=== PATIENT | female | born 1995 | race Caucasian/White ===

== ENCOUNTER 2019-08-14 16:47 | Emergency (ER) | payer BC, MEDICAID, OTHER ==
[2019-08-14 16:57] VITALS: RESP 18; TEMP 100.4
--- NOTE | 2019-08-14 17:41 | ED ---
URI HPI - General Chief Complaint: Upper Respiratory Infection Stated Complaint: pneumonia Time Seen by Provider: 08/14/19 17:04 Source: patient, RN notes reviewed Mode of arrival: ambulatory Limitations: no limitations - History of Present Illness Initial Comments: 24-year-old female without any significant past medical history presents to the emergency department for a chief complaint of cough. Patient states that for the past 4 days she has had a nonproductive cough. She denies any shortness of breath or chest pain associated with this. States she had a fever of 102.7 at urgent care and was given Tylenol 1-2 hours ago and since then has felt much better. States that she had a chest x-ray at urgent care and was told she had pneumonia. Patient was not sent with the x-ray disc. Denies any history of smoking or asthma. Patient has no other complaints at this time including chest pain, abdominal pain, nausea or vomiting, headache, or visual changes. - Related Data Previous Rx's Medication Instructions Recorded Acetaminophen-Codeine 300-30mg 1 each PO Q4H PRN #20 tablet 12/29/14 [Tylenol w/codeine #3] Naproxen [Naprosyn] 500 mg PO Q12HR #24 tab 12/29/14 Azithromycin [Zithromax Z-pack] 250 mg PO DIRECTED #6 tab 08/14/19 Pmos-Ljaz-Egp 6.25-5-10Mg/5Ml 5 ml PO Q6H 3 Days #60 ml 08/14/19 [Phenergan VC with Codeine] Allergies Allergy/AdvReac Type Severity Reaction Status Date / Time No Known Allergies Allergy Verified 08/14/19 16:54 Review of Systems ROS Statement: Those systems with pertinent positive or pertinent negative responses have been documented in the HPI. ROS Other: All systems not noted in ROS Statement are negative. Past Medical History Past Medical History: No Reported History History of Any Multi-Drug Resistant Organisms: None Reported Past Surgical History: No Surgical Hx Reported Past Psychological History: No Psychological Hx Reported Smoking Status: Former smoker Past Alcohol Use History: None Reported Past Drug Use History: None Reported General Exam Limitations: no limitations General appearance: alert, in no apparent distress Head exam: Present: atraumatic, normocephalic, normal inspection Eye exam: Present: normal appearance, PERRL, EOMI. Absent: scleral icterus, conjunctival injection, periorbital swelling ENT exam: Present: normal exam, mucous membranes moist Neck exam: Present: normal inspection. Absent: tenderness, meningismus, lymphadenopathy Respiratory exam: Present: normal lung sounds bilaterally. Absent: respiratory distress, wheezes, rales, rhonchi, stridor Cardiovascular Exam: Present: regular rate, normal rhythm, normal heart sounds. Absent: systolic murmur, diastolic murmur, rubs, gallop, clicks GI/Abdominal exam: Present: soft, normal bowel sounds. Absent: distended, tenderness, guarding, rebound, rigid Neurological exam: Present: alert Psychiatric exam: Present: normal affect, normal mood Course Vital Signs 08/14/19 08/14/19 16:54 18:37 Temperature 100.4 F H Pulse Rate 120 H 97 Respiratory 18 18 Rate Blood Pressure 154/103 135/74 O2 Sat by Pulse 95 93 L Oximetry Medical Decision Making - Medical Decision Making 24 year old female presents to the emergency department for a chief complaint of cough. States she has had a cough for about 4 days. Denies any chest pain or shortness of breath whatsoever. Patient went to urgent care was diagnosed with pneumonia but sent to the emergency department. On presentation lungs are clear to auscultation bilaterally, possible small crackles in the low left lung base. Patient initially tachycardic with a pulse rate of 120 likely secondary to fever. This was repeated throughout her stay and is now in the 90s. Blood pressure has improved as well. Patient is 95% on room air when I am in the room. Influenza negative. Chest x-ray shows findings suspicious for a left lower lobe pneumonia. This is clinically consistent with patient's symptoms. Patient was given an IM Rocephin here in the emergency department and a pill of azithromycin. He will be discharged home with a Z-Clem. Patient will follow up with primary care. Discussed return parameters including shortness of breath, worsening symptoms, or any other concerns. - Lab Data Lab Results 08/14/19 08/14/19 08/14/19 Range/Units 17:30 17:30 17:36 Urine Color Yellow Urine Appearance Clear (Clear) Urine pH 6.0 (5.0-8.0) Ur Specific [place] 1.010 (1.001-1.035) Urine Protein Trace H (Negative) Urine Glucose (UA) Negative (Negative) Urine Ketones Trace H (Negative) Urine Blood Negative (Negative) Urine Nitrite Negative (Negative) Urine Bilirubin Negative (Negative) Urine Urobilinogen <2.0 (<2.0) mg/dL Ur Leukocyte Esterase Negative (Negative) Urine HCG, Qual Not Detected (Not Detectd) Influenza Type A RNA Not Detected (Not Detectd) Influenza Type B (PCR) Not Detected (Not Detectd) Disposition Clinical Impression: Pneumonia Disposition: HOME SELF-CARE Condition: Good Instructions (If sedation given, give patient instructions): Upper Respiratory Infection (ED) Additional Instructions: Please take antibiotic as directed. Please follow-up with primary care in 1-2 days. Return to the emergency department if you have any worsening symptoms including chest pain or shortness of breath. Prescriptions: Chqe-Xhis-Ctn 6.25-5-10Mg/5Ml [Phenergan VC with Codeine] 5 ml PO Q6H 3 Days #60 ml Azithromycin [Zithromax Z-pack] 250 mg PO DIRECTED #6 tab Is patient prescribed a controlled substance at d/c from ED?: No Referrals: Ana Allen MD [STAFF PHYSICIAN] - 1-2 days Time of Disposition: 18:47
[2019-08-14 17:45] LABS: Appearance,Urine Clear (Clear); Bilirubin,Urine Negative (Negative); Blood,Urine Negative (Negative); Color,Urine Yellow; Glucose,Urine (UA) Negative (Negative); Ketones,Urine Trace (Negative); Leukocyte Esterase,Urine Negative (Negative); Nitrite,Urine Negative (Negative); Protein,Urine Trace (Negative); Urobilinogen,Urine <2.0 mg/dL (<2.0)
--- NOTE | 2019-08-14 18:06 | XR ---
EXAMINATION TYPE: XR chest 2V DATE OF EXAM: 08/14/2019 COMPARISON: 12/28/2014 HISTORY: 24-year-old female cough, fever, pneumonia TECHNIQUE: PA and lateral views FINDINGS: Heart normal size. Aorta and pulmonary vasculature within normal limits. Patchy and confluent airspac e opacity left mid and lower lung. No pleural effusion. IMPRESSION: Findings suspicious for left lower lobe pneumonia.
[2019-08-14] MEDS ORDERED: IBUPROFEN 600 MG TAB PO STA (18:12)
[2019-08-14 18:38] VITALS: BP 135/74; PULSE 97
[2019-08-14] MEDS ORDERED: AZITHROMYCIN 500 MG TAB PO STA (18:39)
[2019-08-14] MEDS ORDERED: cefTRIAXone 1,000 MG VIAL (IM USE) IM STA (18:39)
== END 2019-08-14 19:16 | disposition home or self-care (01) ==
LOC: EC 16:47
DX: J18.9 Pneumonia, unspecified organism (principal); Z87.891 Personal history of nicotine dependence
CPT/HCPCS: 81003; 81025; 87502; 71046; 96372; 99283; J0696

== ENCOUNTER → 2020-12-07 | Outpatient (CLI) | payer MEDICAID ==
--- NOTE | 2020-12-07 10:05 | XR ---
EXAMINATION TYPE: XR ankle complete 3 views RT, XR foot complete 3 views RT DATE OF EXAM: 12/07/2020 COMPARISON: NONE HISTORY: 25-year-old female tripped on dog, pain. FINDINGS: Ankle: There is a tiny curvilinear density at the inferior tip of the medial malleolus. Mild circumferential soft tissue swelling at the ankle. Corticated bone fragment measuring 7 mm below the lateral malleol us suggesting sequela of remote injury. Talar dome is intact. Ankle mortise is congruent. Smooth deli neation to the Achilles tendon. Tiny plantar heel spur. Subtalar joint is aligned. Foot: Mild bunion formation. No acute fracture, subluxation, dislocation seen. IMP SCOTTY: 1. Ankle: Tiny curvilinear density at the inferior tip of the medial malleolus. Age indeterminate tin y, nondisplaced avulsion fracture. Acute injury here is difficult to exclude. Clinically correlate. S equela of remote injury at the lateral malleolus. 2. Foot: Mild bunion. No acute osseous anomaly seen. If symptoms persist or worsen, consider follow-u p radiograph in 10-14 days.
== END | disposition home or self-care (01) ==
LOC: RADXRMAIN 09:32
PROVIDERS: ATTEND Nurse Practitioner Family
DX: S82.891A Other fracture of right lower leg, initial encounter for closed fracture (principal); M21.611 Bunion of right foot; S99.811A Other specified injuries of right ankle, initial encounter; S82.61XS Displaced fracture of lateral malleolus of right fibula, sequela

== ENCOUNTER → 2021-01-30 | Outpatient (CLI) | payer MEDICAID ==
[2021-01-31 02:01] LABS: HIV 2 AB Non-Reactive (Non-Reactive); HIV AB P24 Non-Reactive (Non-Reactive); HIV P24 AG Non-Reactive (Non-Reactive)
[2021-01-31 03:49] LABS: HGB 12.9 g/dL (12.0-15.0); MCH 30.9 pg (27.0-32.0); MCHC 32.3 g/dL (32.0-37.0); MCV 95.7 fL (80.0-97.0); Platelet Count 274 X 10*3/uL (140-440); RBC 4.18 X 10*6/uL (4.10-5.20); RDW 12.7 % (11.5-14.5); WBC 8.82 X 10*3/uL (4.50-10.00)
[2021-01-31 03:53] LABS: Uric Acid 3.9 mg/dL (2.9-7.7)
[2021-01-31 04:42] LABS: Hepatitis B Surface Antigen Non-Reactive (Non-Reactive)
[2021-01-31 07:50] LABS: Hemoglobin A1C 4.7 % (4.0-6.0)
== END ==
LOC: LABWHC1 14:40
PROVIDERS: ATTEND Obstetrics & Gynecology Obstetrics
DX: Z34.01 Encounter for supervision of normal first pregnancy, first trimester (principal); Z3A.00 Weeks of gestation of pregnancy not specified
CPT/HCPCS: 36415; 82950; 83036; 84450; 84460; 84550; 85027; 86762; 86780; 86850; 86900; 86901; 87086; 87340; 87390

== ENCOUNTER → 2021-05-16 | Outpatient (CLI) | payer MEDICAID ==
[2021-05-16 22:35] LABS: HGB 10.7 g/dL (12.0-15.0); MCHC 32.4 g/dL (32.0-37.0); MCV 95.7 fL (80.0-97.0); Mean Platelet Volume 11.6 fL (9.5-12.2); Platelet Count 257 X 10*3/uL (140-440); RBC 3.45 X 10*6/uL (4.10-5.20); RDW 14.4 % (11.5-14.5); WBC 10.51 X 10*3/uL (4.50-10.00)
== END | disposition home or self-care (01) ==
LOC: LABWHC1 14:39
PROVIDERS: ATTEND Obstetrics & Gynecology Obstetrics
DX: Z36.9 Encounter for antenatal screening, unspecified (principal)
CPT/HCPCS: 36415; 82950; 85027

== ENCOUNTER 2021-07-27 07:49 | Outpatient (CLI) | payer MEDICAID ==
[2021-07-27 09:52] LABS: Basophils % (A) 0 %; Eosinophils # (A) 0.1 k/uL (0-0.7); Eosinophils % (A) 1 %; HCT 34.9 % (34.0-46.0); HGB 11.4 gm/dL (11.4-16.0); Lymphocytes # (A) 1.7 k/uL (1.0-4.8); Lymphocytes % (A) 14 %; MCH 30.3 pg (25.0-35.0); MCHC 32.6 g/dL (31.0-37.0); MCV 92.8 fL (80.0-100.0); Mean Platelet Volume 9.1; Monocytes # (A) 0.5 k/uL (0-1.0); Monocytes % (A) 4 %; Neutrophils # (A) 9.3 k/uL (1.3-7.7); Neutrophils % (A) 79 %; Platelet Count 264 k/uL (150-450); RBC 3.76 m/uL (3.80-5.40); RDW 13.6 % (11.5-15.5); WBC 11.8 k/uL (3.8-10.6)
[2021-07-27 09:59] LABS: Appearance,Urine Clear (Clear); Bilirubin,Urine Negative (Negative); Blood,Urine Negative (Negative); Color,Urine Light Yellow; Glucose,Urine (UA) Negative (Negative); Ketones,Urine Negative (Negative); Leukocyte Esterase,Urine Negative (Negative); Nitrite,Urine Negative (Negative); PH, Urine 7.5 (5.0-8.0); Protein,Urine Negative (Negative); Specific Gravity,Urine 1.008 (1.001-1.035); Urobilinogen,Urine <2.0 mg/dL (<2.0)
[2021-07-27 10:01] VITALS: BP 139/84; PULSE 108; RESP 18; TEMP 97.7
[2021-07-27 10:01] LABS: ALT 10 U/L (4-34); AST 18 U/L (14-36); African American GFR (CKD) >90 (>60 ml/min/1.73 sqM); Blood Urea Nitrogen 5 mg/dL (7-17); LDH 333 U/L (313-618); Non-African American GFR(CKD) >90 (>60 ml/min/1.73 sqM); Uric Acid 3.5 mg/dL (3.7-7.4)
[2021-07-27 10:07] LABS: INR 0.8 (<1.2); Partial Thromboplastin Time 22.9 sec (22.0-30.0); Prothrombin Time 9.3 sec (9.0-12.0)
[2021-07-27 10:09] LABS: Creatinine,Urine Random 61.7 mg/dL; Protein/Creatinine Ratio,Urine 0.227
--- NOTE | 2021-09-19 16:17 | P.MSEPDOC ---
Presenting Problems - Arrival Data Date of Arrival on Unit: 07/27/21 Time of Arrival on Unit: 07:49 Mode of Transport: Ambulatory - Complaint OB-Reason for Admission/Chief Complaint: Possible Onset of Labor Comment: Pt here with c/o cxns this AM, rating them 6/10 for pain. Medical History - Information : 1 Para: 0 Term: 0 : 0 Abortions: Spontaneous or Elective: 0 Number of Living Children: 0 - Gestational Age Gestational Age by CRISTIAN (wks/days): 37 Weeks and 1 Days - History Complications: Other Comment: COVID in January Review of Systems - Review of Systems Constitutional: No problems Breast: No problems ENT: No problems Cardiovascular: No problems Respiratory: No problems Gastrointestinal: No problems Genitourinary: No problems Musculoskeletal: No problems Neurological: No problems Skin: No problems Vital Signs - Temperature Temperature: 97.7 F Temperature Source: Temporal Artery Scan - Pulse Right Pulse Rate: 108 Pulse Assessment Method: Automatic Cuff - Respirations Respiratory Rate: 18 Oxygen Delivery Method: Room Air O2 Sat by Pulse Oximetry: 98 - Blood Pressure Right Arm Blood Pressure: 139/84 Blood Pressure Mean: 102 Blood Pressure Source: Automatic Cuff Medical Screen Scoring - Cervical Exam Dilation (cm): 1 Membranes: Intact - Uterine Contractions Frequency From (mins): 3 Frequency To (mins): 4 Duration From (seconds): 60 Duration To (seconds): 120 Intensity: Mild Resting: Soft to palpation - Assessment - Baby A Baseline FHR: 135 Heart Rate - NICHD Category: Category I (Normal) NST: Reactive Physician Notification - Physician Notified Physician Notified Date: 07/27/21 Physician Notified Time: 10:13 Physician: Carey Ayers New Order Received: Yes - Notification Comment Comment: RN spoke with Dr. Ayers regarding pt's c/o cxns. Cxns approximately 3- 4mins on. arrival, more spaced out now. Cervix is fingertip/thick/high. BPs are elevated, RN to order preeclamptic labs and urine. Lab values WNL, pt may DC with follow up next week. Maternal Triage Index - Maternal Triage Index Presenting for scheduled procedure w/no complaint: No - Stat/Priority 1 Stat Priority 1: No - Urgent/Priority 2 Urgent Priority 2: Yes Provider Notified: Carey Ayers Provider Notified Time: 09:13 Criteria Met for Priority 2: SBP >140 & DBP >90 Disposition - Disposition OB Disposition: Discharge to home Discharge Date: 07/27/21 Discharge Time: 10:18 I agree with the RN Medical Screening Exam: Yes Case reviewed; plan agreed upon as documented in EMR&OBIX.: Yes Comments: Patient was not seen or examined by myself Diagnosis: FALSE LABOR AT OR AFTER 37 COMPLETED WEEKS OF GESTATION
== END 2021-07-27 10:18 | disposition home or self-care (01) ==
LOC: FBPOP 07:49
PROVIDERS: ATTEND Obstetrics & Gynecology Obstetrics
DX: O47.1 False labor at or after 37 completed weeks of gestation (principal); Z3A.37 37 weeks gestation of pregnancy; Z87.891 Personal history of nicotine dependence
CPT/HCPCS: 59025; 81003; 82565; 82570; 83615; 84156; 84450; 84460; 84520; 84550; 85025; 85384; 85610; 85730; 99215

== ENCOUNTER 2021-08-14 14:15 | Outpatient (CLI) | payer MEDICAID ==
[2021-08-14 14:44] LABS: Appearance,Urine Clear (Clear); Bilirubin,Urine Negative (Negative); Blood,Urine Negative (Negative); Color,Urine Yellow; Glucose,Urine (UA) Negative (Negative); Ketones,Urine Negative (Negative); Leukocyte Esterase,Urine Negative (Negative); Nitrite,Urine Negative (Negative); PH, Urine 6.5 (5.0-8.0); Protein,Urine Negative (Negative); Specific Gravity,Urine 1.017 (1.001-1.035); Urobilinogen,Urine <2.0 mg/dL (<2.0)
[2021-08-14 15:31] LABS: Basophils % (A) 0 %; Eosinophils # (A) 0.2 k/uL (0-0.7); Eosinophils % (A) 2 %; HCT 33.6 % (34.0-46.0); HGB 11.7 gm/dL (11.4-16.0); Lymphocytes # (A) 1.4 k/uL (1.0-4.8); Lymphocytes % (A) 15 %; MCH 31.4 pg (25.0-35.0); MCHC 34.9 g/dL (31.0-37.0); Mean Platelet Volume 8.5; Monocytes # (A) 0.4 k/uL (0-1.0); Monocytes % (A) 4 %; Neutrophils # (A) 7.8 k/uL (1.3-7.7); Neutrophils % (A) 79 %; Platelet Count 311 k/uL (150-450); RBC 3.73 m/uL (3.80-5.40); RDW 13.4 % (11.5-15.5); WBC 9.9 k/uL (3.8-10.6)
[2021-08-14 15:38] LABS: ALT 10 U/L (4-34); AST 29 U/L (14-36); African American GFR (CKD) >90 (>60 ml/min/1.73 sqM); Blood Urea Nitrogen 6 mg/dL (7-17); LDH 578 U/L (313-618); Non-African American GFR(CKD) >90 (>60 ml/min/1.73 sqM); Uric Acid 3.9 mg/dL (3.7-7.4)
[2021-08-14 16:23] VITALS: BP 136/78; PULSE 100; RESP 18; TEMP 98.9
[2021-08-15 12:17] LABS: Creatinine,Urine Random 118.3 mg/dL; Protein/Creatinine Ratio,Urine 0.042
--- NOTE | 2021-10-14 09:43 | P.MSEPDOC ---
Presenting Problems - Arrival Data Date of Arrival on Unit: 08/14/21 Time of Arrival on Unit: 14:15 Mode of Transport: Ambulatory - Complaint OB-Reason for Admission/Chief Complaint: PIH Comment: Sent over from office for PI work up. Medical History - Information : 1 Para: 0 Term: 0 : 0 Abortions: Spontaneous or Elective: 0 Number of Living Children: 0 - Gestational Age Gestational Age by CRISTIAN (wks/days): 39 Weeks and 5 Days Review of Systems - Review of Systems Constitutional: No problems Breast: No problems ENT: No problems Cardiovascular: No problems Respiratory: No problems Gastrointestinal: No problems Genitourinary: No problems Musculoskeletal: No problems Neurological: No problems Skin: No problems Vital Signs - Temperature Temperature: 98.9 F Temperature Source: Oral - Pulse Right Pulse Rate: 100 Pulse Assessment Method: Automatic Cuff - Respirations Respiratory Rate: 18 Oxygen Delivery Method: Room Air - Blood Pressure Right Arm Blood Pressure: 136/78 Blood Pressure Mean: 97 Blood Pressure Source: Automatic Cuff Medical Screen Scoring - Cervical Exam Membranes: Intact - Assessment - Baby A Baseline FHR: 145 Heart Rate - NICHD Category: Category I (Normal) NST: Reactive Physician Notification - Physician Notified Physician Notified Date: 08/14/21 Physician Notified Time: 15:49 Physician: Carey Ayers New Order Received: Yes (Discharge home with place for cervidil 08/15/21@1600.) Maternal Triage Index - Maternal Triage Index Presenting for scheduled procedure w/no complaint: No - Stat/Priority 1 Stat Priority 1: No - Urgent/Priority 2 Urgent Priority 2: No - Prompt/Priority 3 Prompt Priority 3: No - Non-Urgent/Priority 4 Non-Urgent Priority 4: No - Scheduled/Requesting Priority 5 Scheduled/Requesting Priority 5: Yes Criteria Met for Priority 5: Sent over from office for PI work up. Disposition - Disposition OB Disposition: Discharge to home Discharge Date: 08/14/21 Discharge Time: 15:49 I agree with the RN Medical Screening Exam: Yes Physician's MSE Comment: Patient was not seen or examined by myself Case reviewed; plan agreed upon as documented in EMR&OBIX.: Yes Diagnosis: GESTATIONAL HTN W/O SIGNIFICANT PROTEINURIA, THIRD TRIMESTER
== END 2021-08-14 15:55 | disposition home or self-care (01) ==
LOC: FBPOP 14:15
PROVIDERS: ATTEND Obstetrics & Gynecology Obstetrics
DX: O13.3 Gestational [pregnancy-induced] hypertension without significant proteinuria, third trimester (principal); Z3A.39 39 weeks gestation of pregnancy; Z87.891 Personal history of nicotine dependence
CPT/HCPCS: 59025; 81003; 82565; 82570; 83615; 84156; 84450; 84460; 84520; 84550; 85025; 99215

== ENCOUNTER 2021-08-15 16:00 | Inpatient (IN) | payer MEDICAID ==
[~2021-08-15 16:00] MED LIST: CARBOPROST TROMETHAMINE 250 MCG/ML 1 ML AMP IM PRN; DINOPROSTONE 10 MG INSERT.ER VAGINAL ONE; LIDOCAINE 0.5% (PF) 5 MG/ML (50 ML SDV) SQ PRN; METHYLERGONOVINE 0.2 MG/ML 1 ML AMP IM PRN; OXYTOCIN 10 UNIT/ML 1 ML VIAL IM PRN; OXYTOCIN 30 UNITS/500 ML NS 30 UNIT in SALINE 1 500ML.BAG IV SCH; TERBUTALINE 1 MG/ML VIAL SQ PRN
--- NOTE | 2021-08-15 16:35 | P.HPOB ---
History of Present Illness H&P Date: 08/15/21 Chief Complaint: IUP @ 39 6/7 weeks This is a 26-year-old 1 para 0 at 39-6/7 weeks that presents for Cervidil induction of labor. Patient has been receiving routine care which has been uncomplicated. Patient does note good movement, occasional contractions denies vaginal bleeding or loss of fluid. On bloodwork this patient is a blood type of A+, B surface antigen negative, HIV negative, RPR is nonreactive, group beta strep cultures are n egative. Review of Systems Constitutional: Denies chills, Denies fatigue, Denies fever Ears, nose, mouth and throat: Denies headache Cardiovascular: Reports leg edema Respiratory: Denies dyspnea Gastrointestinal: Denies constipation, Denies diarrhea, Denies nausea, Denies vomiting Genitourinary: Reports Past Medical History Past Medical History: No Reported History History of Any Multi-Drug Resistant Organisms: None Reported Past Surgical History: No Surgical Hx Reported Smoking Status: Never smoker Medications and Allergies Home Medications Medication Instructions Recorded Confirmed Type Aspirin [[place] Aspirin EC] 1 tab PO DAILY 07/27/21 08/14/21 History Omeprazole 1 tab PO DAILY 07/27/21 08/14/21 History Pnv 11/Iron Fum/Folic Acid/Om3 1 each PO DAILY 08/14/21 08/14/21 History [Virt-Vincent Dha Softgel] Allergies Allergy/AdvReac Type Severity Reaction Status Date / Time No Known Allergies Allergy Verified 08/14/21 14:27 Exam Osteopathic Statement: *. No significant issues noted on an osteopathic structural exam other than those noted in the History and Physical/Consult. Targeted physical exam is performed and state in general is well-nourished well-developed female in no acute distress, breathing is noted to be nonlabored, heart has regular rhythm, abdomen is gravid, on cervical exam she is 1/60/-2 station Cervidil is placed without difficulty, heart tones returned be category 1 and she is not dhruv. Assessment and Plan (1) Term Current Visit: Yes Status: Acute Code(s): Z34.90 - ENCNTR FOR SUPRVSN OF NORMAL , UNSP, UNSP TRIMESTER SNOMED Code(s): 43197690 Plan: 18-year-old 1 para 0 at 39-6/7 weeks that presents for induction of labor. Cervidil induction is begun. Plan removal of Cervidil around 5 AM, patient is allowed to have a late breakfast such as toast, water. Patient will then begin Pitocin augmentation of labor. Patient is counseled on plan of care. All questions are answered. Patient states understanding. Stadol/epidural is offered for pain relief during labor. Patient will consider
[2021-08-15 18:08] LABS: Basophils % (A) 0 %; Eosinophils # (A) 0.2 k/uL (0-0.7); Eosinophils % (A) 2 %; HCT 33.7 % (34.0-46.0); HGB 11.4 gm/dL (11.4-16.0); Lymphocytes # (A) 1.9 k/uL (1.0-4.8); Lymphocytes % (A) 18 %; MCH 30.4 pg (25.0-35.0); MCHC 33.9 g/dL (31.0-37.0); MCV 89.8 fL (80.0-100.0); Mean Platelet Volume 8.5; Monocytes # (A) 0.5 k/uL (0-1.0); Monocytes % (A) 5 %; Neutrophils # (A) 7.9 k/uL (1.3-7.7); Neutrophils % (A) 74 %; Platelet Count 347 k/uL (150-450); RBC 3.76 m/uL (3.80-5.40); RDW 13.4 % (11.5-15.5); WBC 10.6 k/uL (3.8-10.6)
[2021-08-15] MEDS: BUTORPHANOL 1 MG/ML 1 ML VIAL IV PRN (23:52)
[2021-08-16] MEDS: LACTATED RINGERS 1,000 ML IV SCH ×5 (01:33→20:02)
[2021-08-16] MEDS: BUTORPHANOL 1 MG/ML 1 ML VIAL IV PRN ×2 (03:33→07:36)
[2021-08-16] MEDS ORDERED: SODIUM CHLORIDE 0.9% 100 ML BAG ONE (08:48)
[2021-08-16] MEDS ORDERED: ROPIVACAINE 5MG/ML 20ML VIAL ONE (08:48)
[2021-08-16] MEDS ORDERED: fentaNYL (PF) 50 MCG/ML 5 ML AMP ONE (08:48)
[2021-08-16] MEDS ORDERED: CITRIC ACID-SODIUM CITRATE 15 ML CUP PO ONE (17:13)
[2021-08-16] MEDS ORDERED: NALBUPHINE 10 MG/ML (1 ML AMP) ONE (17:21)
[2021-08-16] MEDS ORDERED: ONDANSETRON 4 MG/2 ML VIAL ONE (17:21)
[2021-08-16] MEDS ORDERED: PHENYLEPHRINE-0.9% NACL SYG 1,000 MCG/10 ML SYRINGE ONE (17:21)
[2021-08-16] MEDS ORDERED: OXYTOCIN 30 UNITS/500 ML NS BAG IV ONE (17:21)
[2021-08-16] MEDS ORDERED: MORPHINE SULFATE (PF) 0.3 MG/0.3 ML SYR ONE (17:21)
--- NOTE | 2021-08-16 18:21 | P.OP ---
Date of Procedure: 08/16/21 Preoperative Diagnosis: IUP at 40 and 0, arrest of descent Postoperative Diagnosis: same Procedure(s) Performed: Primary low transverse section Anesthesia: spinal Surgeon: Carey Ayers Hat Conditioner #1: Isabel Ron Estimated Blood Loss (ml): 444 Urine output (ml): 50 Pathology: none sent Condition: stable Disposition: observation Indications for Procedure: 26-year-old at 40-0/7 weeks that was admitted to labor and delivery last evening for Cervidil induction of labor. Patient made good progress through the night being 3 cm in the morning. Patient had spontaneous rupture of membranes in addition. Patient progressed through labor eventually becoming uncomfortable and requesting epidural placement. Epidural was placed without difficulty by the anesthesia department. She continues to have poor pain control. Patient did progressed to complete and began pushing, after proximally and hour and half no descent of the head was appreciated with increased Formation. Patient was counseled on primary for arrest of descent. was discussed, questions were answered and patient was agreeable. Operative Findings: Viable female infant delivered at 1748, weight of 7 lbs. 0 oz., Apgars of 9 and 10 at one and 5 minutes respectively. Normal uterus tubes and ovaries were appreciated. Description of Procedure: Patient was taken back to the operating suite where spinal anesthesia was found be adequate by the anesthesia department. She was then prepped and draped in the normal sterile fashion in the dorsal supine position. A Pfannenstiel skin incision was made with the scalpel and carried through the underlying layer of fascia. The fascia was then incised in midline and extended laterally. The superior aspect of the fascial incision was then grasped yohan clamps, elevated and underlying rectus muscles dissected off sharply. Attention then turned to the inferior aspect of the fascial incision which was grasped yohan clamps, elevated and underlying rectus muscle was dissected off sharply. The rectus muscles were in the midline the peritoneum was identified and entered. This incision was then extended superiorly and inferiorly with good visualization the bladder. The bladder blade was then inserted into the pelvis. A bladder flap was then created using sharp and blunt dissection. The bladder blade was then reinserted into the pelvis. A scalpel was used to make a hysterotomy incision, the infant was encountered in a vertex presentation section and delivered in the usual fashion. The umbilical cords doubly clamped and cut. The infant was handed off to awaiting RN. The placenta was then delivered manually and the uterus was cleared of all clots and debris. The uterus was delivered from the abdomen. The uterus was closed with 0 Vicryl in a running locked fashion. A second imbricating suture was used to obtain hemostasis. Small amount of bleeding was noted on the right-hand side of the uterine incision therefore a nxfqca-[id number] suture was used to obtain hemostasis. The uterus was then returned the abdomen, the hysterotomy incision was found to be hemostatic. The gutters were cleared of all clots and debris. The hysterotomy incision was inspected and found to be hemostatic. The rectus muscles were loosely reapproximated. The fascia was then closed with 0 Vicryl in a running fashion from one lateral edge the midline and the other lateral edge the midline. Subcutaneous tissue was then inspected found to be hemostatic and irrigated. The subcutaneous tissue was closed with 3-0 Vicryl in a running fashion. The skin was then closed with 4-0 Vicryl in a subcuticular fashion. Steri-Strips and sterile dressings were applied. All counts were noted be correct 2 at the end the procedure. Patient and tolerated delivery well and are resting comfortably.
[2021-08-16] MEDS ORDERED: diphenhydrAMINE 50 MG/ML 1 ML VIAL IVP PRN ×2 (18:25)
[2021-08-16] MEDS ORDERED: ZOLPIDEM 5 MG TAB PO PRN (18:25)
[2021-08-16] MEDS ORDERED: ONDANSETRON 4 MG/2 ML VIAL IVP PRN (18:25)
[2021-08-16] MEDS ORDERED: diphenhydrAMINE 50 MG CAP PO PRN (18:25)
[2021-08-16] MEDS ORDERED: METOCLOPRAMIDE 5 MG/ML 2 ML VIAL IVP PRN (18:25)
[2021-08-16] MEDS ORDERED: NALOXONE 0.4 MG/ML 1 ML VIAL IV PRN (18:25)
[2021-08-16] MEDS ORDERED: diphenhydrAMINE 25 MG CAP PO PRN (18:25)
[2021-08-16] MEDS ORDERED: OXYTOCIN 30 UNITS/500 ML NS 30 UNIT in SALINE 1 500ML.BAG IV SCH (18:30)
[2021-08-16] MEDS: ACETAMINOPHEN IV (For NPO) 1,000 MG in EMPTY BAG 1 BAG IVPB SCH (19:03)
[2021-08-16] MEDS: PRENATAL VIT-IRON-FOLIC ACID 1 EACH CAP PO SCH (19:44)
[2021-08-16] MEDS: SENNOSIDES-DOCUSATE SODIUM 1 EACH TAB PO SCH (20:01)
[2021-08-16] MEDS: ACETAMINOPHEN TAB 500 MG TAB PO SCH (21:03)
[2021-08-16] MEDS: IBUPROFEN IV 800 MG in SODIUM CHLORIDE 0.9% 250 ML IV SCH (22:11)
[2021-08-17] MEDS: LACTATED RINGERS 1,000 ML IV SCH ×2 (01:06→04:32)
[2021-08-17] MEDS: IBUPROFEN 600 MG TAB PO SCH ×4 (01:07→19:57)
[2021-08-17] MEDS: ACETAMINOPHEN IV (For NPO) 1,000 MG in EMPTY BAG 1 BAG IVPB SCH (01:36)
[2021-08-17] MEDS: ACETAMINOPHEN TAB 500 MG TAB PO SCH ×4 (03:30→23:19)
[2021-08-17] MEDS: IBUPROFEN IV 800 MG in SODIUM CHLORIDE 0.9% 250 ML IV SCH (04:32)
[2021-08-17 07:03] LABS: Basophils % (A) 0 %; Eosinophils # (A) 0.1 k/uL (0-0.7); Eosinophils % (A) 0 %; HCT 29.9 % (34.0-46.0); HGB 10.2 gm/dL (11.4-16.0); Lymphocytes # (A) 2.3 k/uL (1.0-4.8); Lymphocytes % (A) 13 %; MCHC 34.2 g/dL (31.0-37.0); MCV 90.7 fL (80.0-100.0); Monocytes # (A) 0.9 k/uL (0-1.0); Monocytes % (A) 5 %; Neutrophils # (A) 14.6 k/uL (1.3-7.7); Neutrophils % (A) 81 %; Platelet Count 307 k/uL (150-450); RBC 3.29 m/uL (3.80-5.40); RDW 13.4 % (11.5-15.5); WBC 18.1 k/uL (3.8-10.6)
[2021-08-17 08:42] VITALS: RESP 16
--- NOTE | 2021-08-17 08:46 | P.PNOBGPC ---
Subjective - Subjective Principal diagnosis: Postop day 1, primary Interval history: Patient is doing well postoperatively. She is ambulating and voiding without difficulty. She states her pain is well-controlled. She denies concerns. She is tolerating a regular diet without nausea or vomiting. Patient reports: Reports appetite normal, Reports voiding normally, Reports pain well controlled, Reports ambulating normally : doing well Objective - Vital Signs Latest vital signs: Vital Signs Temp Pulse Resp BP Pulse Ox 08/17/21 08:00 97.6 F 81 16 103/70 98 08/17/21 04:00 97.8 F 77 17 124/77 97 08/17/21 00:30 98.2 F 68 17 123/66 97 08/16/21 20:23 97.2 F L 75 16 113/67 97 08/16/21 19:53 72 16 120/63 08/16/21 19:23 81 16 120/65 08/16/21 19:08 83 16 115/61 08/16/21 18:51 87 16 114/56 08/16/21 18:38 103 H 16 113/54 08/16/21 18:23 97 F L 94 16 121/54 Intake and Output 08/16/21 08/17/21 08/17/21 22:59 06:59 14:59 Intake Total 800 480 Output Total 150 400 450 Balance 650 80 -450 Intake: IV 800 Oral 480 Output: Urine 150 400 450 Other: Voiding Method Indwelling Catheter # Voids 1 - Exam Extremities: Present: normal, edema Abdomen: Present: normal appearance Incision: Present: normal, intact - Labs Labs: Abnormal Lab Results - Last 24 Hours (Table) 08/17/21 Range/Units 06:39 WBC 18.1 H (3.8-10.6) k/uL RBC 3.29 L (3.80-5.40) m/uL Hgb 10.2 L (11.4-16.0) gm/dL Hct 29.9 L (34.0-46.0) % Neutrophils # 14.6 H (1.3-7.7) k/uL Assessment and Plan (1) Term Current Visit: Yes Status: Acute Code(s): Z34.90 - ENCNTR FOR SUPRVSN OF NORMAL , UNSP, UNSP TRIMESTER SNOMED Code(s): 17846313 (2) S/P section Current Visit: Yes Status: Acute Code(s): Z98.891 - HISTORY OF UTERINE SCAR FROM PREVIOUS SURGERY SNOMED Code(s): 967270878 (3) Arrest of descent, delivered, current hospitalization Current Visit: Yes Status: Acute Code(s): O62.1 - SECONDARY UTERINE INERTIA SNOMED Code(s): 26703553 Plan: 26-year-old 1 now para 1 status post primary for arrest of descent. Patient is doing well postoperatively. We'll continue routine postoperative care and anticipate discharge home tomorrow.
--- NOTE | 2021-08-17 11:30 | P.PN ---
Progress Note - Text Progress Note Date: 08/17/21 08/17/2021 @ 1126 Patient seen and examined s/p C/section POD#1 with a duramorph spinal. Patient doing well with no issues. No motor or sensory decits, no back pain. VAS between 0-4. Ambulating.
[2021-08-17] MEDS: SENNOSIDES-DOCUSATE SODIUM 1 EACH TAB PO SCH (19:57)
[2021-08-18] MEDS: IBUPROFEN 600 MG TAB PO SCH ×2 (02:47→08:20)
[2021-08-18] MEDS: PRENATAL VIT-IRON-FOLIC ACID 1 EACH CAP PO SCH ×2 (03:01→11:50)
[2021-08-18] MEDS: LACTATED RINGERS 1,000 ML IV SCH ×2 (03:01→03:02)
[2021-08-18] MEDS: SENNOSIDES-DOCUSATE SODIUM 1 EACH TAB PO SCH ×2 (03:01→08:20)
[2021-08-18] MEDS: ACETAMINOPHEN TAB 500 MG TAB PO SCH (06:45)
[2021-08-18 09:33] VITALS: BP 130/70; PULSE 80; TEMP 98.4
--- NOTE | 2021-08-18 12:17 | P.DS ---
Providers Date of admission: 08/15/21 16:00 Expected date of discharge: 08/18/21 Attending physician: Carey Ayers Primary care physician: Stated None - Discharge Diagnosis(es) (1) S/P section Current Visit: Yes Status: Acute Hospital Course: The patient is a 26-year-old 1 para 0 admitted at 39-6/7 weeks for Cervidil cervical ripening to be followed by Pitocin induction if necessary. Her was uncomplicated and group B strep status is negative. She had Cervidil placed overnight and, the following morning had Pitocin induction started and had spontaneous rupture of membranes for clear fluid. She made progress and had an epidural catheter placed for analgesia. She ultimately progressed to complete and pushed for approximately 1-1/2 hours with no significant descent of the head. She was taken the operating room where she was delivered of a viable 7 lbs. 0 oz. baby girl with Apgars of 9 at 1 minute and 10 at 5 minutes. Her and postoperative courses were entirely unremarkable with vital signs remaining stable and her temperature was afebrile throughout. She was deemed stable for discharge on postoperative and day #2 and was discharged home to follow-up in the office in 2 weeks for an incision check and 6 weeks routinely. Discharge instructions included calling for any significantly increased bleeding or foul-smelling lochia, significantly increased fever or abdominal pain, perineal complaints, breast complaints, incisional complaints, or anything else that concerned her. She is additionally instructed to have nothing in the vagina for at least 6 weeks time to include intercourse. She was instructed to do no heavy lifting over the same period of time. She was last instructed to do no driving until off of all pain medications or 2 weeks' time, whichever came first. She understood her instructions and agrees to follow up as noted above. Discharge medications included continued vitamins as she has opted to breast-feed that she may supplement as well. She additionally was to use [id number] analgesic pain medications but was provided with a prescription for Tylenol 3, 1-2 by mouth every 6 hours when necessary pain, #20 dispensed with no refills. Maternal blood type is A+ and rubella status is immune. Discharge hemoglobin and hematocrit were 10.2 and 29.9 respectively. Procedures: #1. Cervidil cervical ripening #2. Pitocin induction #3. Epidural analgesia #4. Primary low-transverse section Patient Condition at Discharge: Stable Plan - Discharge Summary Discharge Rx Participant: No New Discharge Prescriptions: No Action Omeprazole 1 tab PO DAILY Pnv 11/Iron Fum/Folic Acid/Om3 [Virt-Vincent Dha Softgel] 1 each PO DAILY Aspirin [[place] Aspirin EC] 1 tab PO DAILY Discharge Medication List Aspirin [[place] Aspirin EC] 1 tab PO DAILY 07/27/21 [History] Omeprazole 1 tab PO DAILY 07/27/21 [History] Pnv 11/Iron Fum/Folic Acid/Om3 [Virt-Vincent Dha Softgel] 1 each PO DAILY 08/14/21 [History] Follow up Appointment(s)/Referral(s): Carey Ayers DO [Doctor of Osteopathic Medicine] - 2 Weeks Discharge Disposition: HOME SELF-CARE
== END 2021-08-18 14:00 | disposition home or self-care (01) | DRG 788 ==
LOC: 4FBP 16:00
PROVIDERS: ADMIT Obstetrics & Gynecology Obstetrics; ATTEND Obstetrics & Gynecology Obstetrics
PROC: 3E033VJ Introduction of Other Hormone into Peripheral Vein, Percutaneous Approach (ICD-10-PCS; 2021-08-16)
PROC: 3E0P7VZ Introduction of Hormone into Female Reproductive, Via Natural or Artificial Opening (ICD-10-PCS; 2021-08-16)
PROC: 10D00Z1 Extraction of Products of Conception, Low, Open Approach (ICD-10-PCS; principal; 2021-08-16 17:42)
DX: O62.0 Primary inadequate contractions (principal); Z3A.39 39 weeks gestation of pregnancy; Z3A.40 40 weeks gestation of pregnancy; Z79.82 Long term (current) use of aspirin; Z37.0 Single live birth
CPT/HCPCS: 85025; 86850; 86900; 86901

== ENCOUNTER → 2022-01-30 | Outpatient (CLI) | payer MEDICAID ==
[2022-01-30 18:55] LABS: HCT 38.3 % (37.2-46.3); HGB 12.1 g/dL (12.0-15.0); MCH 28.8 pg (27.0-32.0); MCHC 31.6 g/dL (32.0-37.0); MCV 91.2 fL (80.0-97.0); Mean Platelet Volume 11.4 fL (9.5-12.2); NRBC Per 100 WBC 0 /100 WBCS (0.0-0.0); Platelet Count 265 X 10*3/uL (140-440); RDW 14.2 % (11.5-14.5); WBC 9.43 X 10*3/uL (4.50-10.00)
[2022-01-30 19:12] LABS: Hepatitis B Surface Antigen Nonreactive (Nonreactive)
[2022-01-30 21:50] LABS: HIV 2 AB Non-Reactive (Non-Reactive); HIV AB P24 Non-Reactive (Non-Reactive); HIV P24 AG Non-Reactive (Non-Reactive)
== END | disposition home or self-care (01) ==
LOC: LABWHC1 12:31
PROVIDERS: ATTEND Obstetrics & Gynecology Obstetrics
DX: Z34.81 Encounter for supervision of other normal pregnancy, first trimester (principal)
CPT/HCPCS: 36415; 82950; 83036; 85027; 86762; 86780; 86850; 86900; 86901; 87340; 87390

== ENCOUNTER → 2022-05-16 | Outpatient (CLI) | payer MEDICAID ==
[2022-05-16 22:31] LABS: HCT 34.2 % (37.2-46.3); HGB 10.9 g/dL (12.0-15.0); MCH 29.6 pg (27.0-32.0); MCHC 31.9 g/dL (32.0-37.0); MCV 92.9 fL (80.0-97.0); Mean Platelet Volume 10.9 fL (9.5-12.2); NRBC Per 100 WBC 0 /100 WBCS (0.0-0.0); Platelet Count 290 X 10*3/uL (140-440); RBC 3.68 X 10*6/uL (4.10-5.20); WBC 10.35 X 10*3/uL (4.50-10.00)
== END | disposition home or self-care (01) ==
LOC: LABWHC1 15:02
PROVIDERS: ATTEND Obstetrics & Gynecology Obstetrics
DX: Z36.9 Encounter for antenatal screening, unspecified (principal)
CPT/HCPCS: 36415; 82950; 85027

== ENCOUNTER 2022-08-06 06:30 | Inpatient (IN) | payer MEDICAID ==
[2022-08-06] MEDS ORDERED: CITRIC ACID-SODIUM CITRATE 15 ML CUP PO ONE (07:33)
[2022-08-06] MEDS ORDERED: LACTATED RINGERS 1,000 ML IV ONE (07:33)
[2022-08-06 07:48] LABS: Basophils % (A) 0 %; Eosinophils # (A) 0.2 k/uL (0-0.7); Eosinophils % (A) 2 %; HGB 11.2 gm/dL (11.4-16.0); Hypochromasia Slight; Lymphocytes # (A) 1.6 k/uL (1.0-4.8); Lymphocytes % (A) 19 %; MCH 29.3 pg (25.0-35.0); Mean Platelet Volume 8.9; Monocytes # (A) 0.3 k/uL (0-1.0); Monocytes % (A) 4 %; Neutrophils # (A) 6.5 k/uL (1.3-7.7); Neutrophils % (A) 74 %; Platelet Count 267 k/uL (150-450); RBC 3.82 m/uL (3.80-5.40); RDW 14.1 % (11.5-15.5); WBC 8.8 k/uL (3.8-10.6)
[2022-08-06] MEDS ORDERED: ONDANSETRON 4 MG/2 ML VIAL ONE (08:09)
[2022-08-06] MEDS ORDERED: OXYTOCIN 30 UNITS/500 ML NS BAG IV ONE (08:09)
[2022-08-06] MEDS ORDERED: MORPHINE SULFATE (PF) 0.3 MG/0.3 ML SYR ONE (08:09)
--- NOTE | 2022-08-06 08:57 | P.HPOB ---
History of Present Illness H&P Date: 08/06/22 Chief Complaint: IUP at 38-4/7 weeks, spontaneous rupture of membranes This is a 27-year-old at 38-4/7 weeks that presents with complaints of spontaneous rupture of membranes clear in nature, around 540 this morning. Patient is noting irregular contractions as well. Patient has a history of a prior and does desire repeat section. Patient has been receiving routine care which is been essentially uncomplicated. Patient notes good movement bloodwork this patient is a blood type of A+, rubella status immune, B surface antigen negative, HIV negative, RPR nonreactive, group beta strep cultures were negative. Review of Systems Constitutional: Denies chills, Denies fatigue, Denies fever Ears, nose, mouth and throat: Denies headache Cardiovascular: Reports leg edema Respiratory: Denies dyspnea Gastrointestinal: Denies constipation, Denies diarrhea, Denies nausea, Denies vomiting Genitourinary: Reports Past Medical History Past Medical History: No Reported History History of Any Multi-Drug Resistant Organisms: None Reported Past Surgical History: Section Additional Past Surgical History / Comment(s): august 2021 Past Anesthesia/Blood Transfusion Reactions: No Reported Reaction Past Psychological History: Anxiety, Depression Additional Psychological History / Comment(s): started on effexor during this Smoking Status: Never smoker Past Alcohol Use History: None Reported Past Drug Use History: None Reported - Past Family History Father Family Medical History: Coronary Artery Disease (CAD), Myocardial Infarction (SC) Medications and Allergies Home Medications Medication Instructions Recorded Confirmed Type Aspirin [[place] Aspirin EC] 1 tab PO DAILY 07/27/21 08/06/22 History Pnv 11/Iron Fum/Folic Acid/Om3 1 each PO DAILY 08/14/21 08/06/22 History [Virt-Vincent Dha Softgel] Venlafaxine HCl [Effexor XR] 75 mg PO DAILY 08/06/22 08/06/22 History Allergies Allergy/AdvReac Type Severity Reaction Status Date / Time No Known Allergies Allergy Verified 08/06/22 06:44 Exam Osteopathic Statement: *. No significant issues noted on an osteopathic structural exam other than those noted in the History and Physical/Consult. Vital Signs Temp Pulse Resp BP Pulse Ox 08/06/22 07:08 97.1 F L 100 18 137/91 99 Intake and Output 08/05/22 08/06/22 08/06/22 22:59 06:59 14:59 Other: Weight 107.501 kg 107.501 kg Targeted physical exam is performed in this date and gluing machine operator electronic a well-nourished well-developed female in no acute distress, breathing is nonlabored, heart has a regular rate and rhythm, abdomen is gravid and appropriate for gestational age, heart tones returned be category 1 and she is dhruv irregularly, on cervical exam she is 4 cm with positive rupture of membranes per RN. Results Result Diagrams: 08/06/22 07:30 Abnormal Lab Results - Last 24 Hours (Table) 08/06/22 Range/Units 07:30 Hgb 11.2 L (11.4-16.0) gm/dL Assessment and Plan (1) SROM (spontaneous rupture of membranes) Current Visit: Yes Status: Acute Code(s): XWH7651 - SNOMED Code(s): 748412518 (2) H/O section Current Visit: Yes Status: Acute Code(s): Z98.891 - HISTORY OF UTERINE SCAR FROM PREVIOUS SURGERY SNOMED Code(s): 059428441 (3) Term Current Visit: No Status: Acute Code(s): Z34.90 - ENCNTR FOR SUPRVSN OF NO RMAL , UNSP, UNSP TRIMESTER SNOMED Code(s): 69828751 Plan: This is a 27-year-old at 38-4/7 weeks that presents with complaints of spontaneous rupture of membranes. Patient is noted to be grossly ruptured, and 4-5 cm. Patient is a scheduled and desires repeat. Anesthesia is notified, repeat section will be performed, questions are answered. Patient states understanding and will proceed to operating suite.
[2022-08-06] MEDS ORDERED: diphenhydrAMINE 50 MG/ML 1 ML VIAL IVP PRN (09:02)
[2022-08-06] MEDS ORDERED: ONDANSETRON 4 MG/2 ML VIAL IVP PRN (09:02)
[2022-08-06] MEDS ORDERED: NALOXONE 0.4 MG/ML 1 ML VIAL IV PRN (09:02)
[2022-08-06] MEDS ORDERED: ZOLPIDEM 5 MG TAB PO PRN (09:02)
[2022-08-06] MEDS ORDERED: diphenhydrAMINE 50 MG CAP PO PRN (09:02)
[2022-08-06] MEDS ORDERED: diphenhydrAMINE 25 MG CAP PO PRN (09:02)
[2022-08-06] MEDS ORDERED: METOCLOPRAMIDE 5 MG/ML 2 ML VIAL IVP PRN (09:02)
--- NOTE | 2022-08-06 09:02 | P.OP ---
Date of Procedure: 08/06/22 Preoperative Diagnosis: IUP at 38-4/7 weeks, spontaneous rupture of membranes, history of 1 Postoperative Diagnosis: Same Procedure(s) Performed: Repeat section Anesthesia: spinal Surgeon: Carey Ayers Assistant Farm Operations Manager #1: Grecia Soliz Pathology: none sent Condition: stable Disposition: observation Indications for Procedure: 27-year-old at 38-4/7 weeks with spontaneous rupture of membranes this a.m., patient is scheduled for repeat section. Operative Findings: Viable female delivered at 829, weight of 7 lbs. 4 oz. Normal uterus tubes and ovaries were appreciated, thin lower uterine segment was noted along with anterior filmy bladder adhesions Description of Procedure: Patient taken back to the operating suite where spinal anesthesia was found be adequate by the anesthesia department. Patient was then prepped and draped in normal sterile fashion in dorsal supine position. A Pfannenstiel skin incision was made the scalpel and carried through to the underlying layer of fascia. The fascia was incised in the midline and extended laterally. The superior aspect of the fascial incision was then grasped yohan clamps, elevated and underlying rectus muscles dissected off sharply. Attention was then turned to the inferior aspect of the fascial incision which was grasped yohan clamps, elevated and underlying rectus muscles dissected off sharply. Rectus muscles were in the midline the peritoneum was identified and entered. Anterior bladder adhesions were appreciated pain care was taken to extend the peritoneal incision superiorly and inferiorly with good visualization the bladder. The bladder blade was then inserted into the pelvis and the bladder adhesions were taken down sharply and bluntly. Hysterotomy incision was made with the scalpel the was encountered in a vertex presentation and delivered in the usual fashion. The umbilical cord was doubly clamped and cut and the was handed to awaiting RN, spontaneous cry was noted at . The placenta was then delivered manually and the uterus was cleared of all clots and debris. Uterus then delivered from the abdomen and the hysterotomy was closed with 0 Vicryl in a running locked fashion a second indicating suture was performed. Hemostasis was appreciated. The uterus was then returned to the abdomen and the gutters were cleared of all clots and debris. The hysterotomy incision was inspected and found to be hemostatic. The rectus muscles were loosely reapproximated in any points of bleeding were made hemostatic with the Bovie. The fascia was then closed 0 Vicryl in a running fashion from one lateral edge the midline and the other lateral edge the midline. The subcu cutaneous tissue was irrigated found to be hemostatic and closed with 3-0 Vicryl. The skin was then closed with 4-0 Vicryl in a subcuticular fashion. Steri-Strips and sterile dressings were applied. All counts were noted be correct 2 at the end of the delivery. Patient and infant tolerated delivery well and are resting comfortably.
[2022-08-06] MEDS ORDERED: OXYTOCIN 30 UNITS/500 ML NS 30 UNIT in SALINE 1 500ML.BAG IV SCH (09:15)
[2022-08-06 09:25] VITALS: RESP 16
[2022-08-06] MEDS: LACTATED RINGERS 1,000 ML IV SCH ×2 (09:55→19:28)
[2022-08-06] MEDS: ACETAMINOPHEN IV (For NPO) 1,000 MG in EMPTY BAG 1 BAG IVPB SCH ×2 (09:55→19:28)
[2022-08-06] MEDS: diphenhydrAMINE 50 MG/ML 1 ML VIAL IVP PRN ×2 (10:35→23:22)
[2022-08-06] MEDS: IBUPROFEN 600 MG TAB PO SCH ×2 (19:28→23:22)
[2022-08-06] MEDS: IBUPROFEN IV 800 MG in SODIUM CHLORIDE 0.9% 250 ML IV SCH ×2 (19:28→23:17)
[2022-08-06] MEDS: ACETAMINOPHEN TAB 500 MG TAB PO SCH (19:28)
[2022-08-06] MEDS: SENNOSIDES-DOCUSATE SODIUM 1 EACH TAB PO SCH (20:28)
[2022-08-07] MEDS: ACETAMINOPHEN TAB 500 MG TAB PO SCH ×4 (01:33→18:25)
[2022-08-07] MEDS: LACTATED RINGERS 1,000 ML IV SCH (01:33)
[2022-08-07] MEDS: IBUPROFEN IV 800 MG in SODIUM CHLORIDE 0.9% 250 ML IV SCH (04:54)
[2022-08-07] MEDS: IBUPROFEN 600 MG TAB PO SCH ×3 (07:08→23:26)
--- NOTE | 2022-08-07 07:37 | P.PN ---
Progress Note - Text Progress Note Date: 08/07/22 Ms. Morgan is a 27 -year-old female had a history of repeat under sp inal analgesia with Astramorph 300 g for postop pain. Today patient is comfortable sitting in her bed. Today patient rated her pain level 2-3 out of 10 in severity. Denied any fever, drowsiness, confusion. Denied any weakness, tingling sensation in her lower extremities. Denied any bowel or bladder problems. Moving all extremities without any difficulty. Able to walk without any difficulties. Vitals: Hemodynamically stable Continue oral pain medication as per primary team.
[2022-08-07] MEDS: SENNOSIDES-DOCUSATE SODIUM 1 EACH TAB PO SCH ×2 (08:58→19:43)
[2022-08-07 09:10] LABS: Basophils % (A) 0 %; Eosinophils # (A) 0.2 k/uL (0-0.7); Eosinophils % (A) 2 %; HCT 31.8 % (34.0-46.0); HGB 10.1 gm/dL (11.4-16.0); Hypochromasia Slight; Lymphocytes # (A) 1.6 k/uL (1.0-4.8); Lymphocytes % (A) 16 %; MCH 28.7 pg (25.0-35.0); MCHC 31.6 g/dL (31.0-37.0); MCV 90.6 fL (80.0-100.0); Mean Platelet Volume 9.3; Monocytes # (A) 0.3 k/uL (0-1.0); Monocytes % (A) 3 %; Neutrophils # (A) 7.7 k/uL (1.3-7.7); Neutrophils % (A) 77 %; Platelet Count 210 k/uL (150-450); RBC 3.51 m/uL (3.80-5.40); RDW 13.8 % (11.5-15.5); WBC 9.9 k/uL (3.8-10.6)
--- NOTE | 2022-08-07 12:49 | P.PNOBGPC ---
Subjective - Subjective Principal diagnosis: postop day 1, repeat section Interval history: patient is doing well postoperatively. She is ambulating and voiding without difficulty. She states her pain is well-controlled. She states her lochia is minimal. Patient reports: Reports appetite normal, Reports voiding normally, Reports pain well controlled, Reports ambulating normally : doing well Objective - Vital Signs Latest vital signs: Vital Signs Temp Pulse Resp BP Pulse Ox 08/07/22 08:00 98.2 F 96 16 126/83 100 08/07/22 04:00 97.7 F 72 16 140/91 100 08/07/22 00:00 97.7 F 69 16 116/72 96 08/06/22 20:00 98.6 F 80 16 136/89 99 Intake and Output 08/06/22 08/07/22 08/07/22 22:59 06:59 14:59 Output Total 300 Balance -300 Output: Urine 300 Other: # Voids 2 1 - Exam Extremities: Present: normal, edema Abdomen: Present: normal appearance, soft Incision: Present: normal, dry, intact Uterus: Present: normal, firm - Labs Labs: Abnormal Lab Results - Last 24 Hours (Table) 08/07/22 Range/Units 08:37 RBC 3.51 L (3.80-5.40) m/uL Hgb 10.1 L (11.4-16.0) gm/dL Hct 31.8 L (34.0-46.0) % Assessment and Plan (1) SROM (spontaneous rupture of membranes) Current Visit: Yes Status: Acute Code(s): ISI7159 - SNOMED Code(s): 885859227 (2) H/O section Current Visit: Yes Status: Acute Code(s): Z98.891 - HISTORY OF UTERINE SCAR FROM PREVIOUS SURGERY SNOMED Code(s): 912801671 (3) Term Current Visit: No Status: Acute Code(s): Z34.90 - ENCNTR FOR SUPRVSN OF NORMAL , UNSP, UNSP TRIMESTER SNOMED Code(s): 85374953 (4) S/P section Current Visit: No Status: Acute Code(s): Z98.891 - HISTORY OF UTERINE SCAR FROM PREVIOUS SURGERY SNOMED Code(s): 274426733 Plan: patient is doing well postoperatively, plan to continue routine postoperative care. Anticipate discharge home tomorrow pending infant status. remains in the nursery on oxygen treatment.
[2022-08-07] MEDS: PRENATAL VIT-IRON-FOLIC ACID 1 EACH TABLET PO SCH (14:51)
[2022-08-07] MEDS: SIMETHICONE 80 MG CHEWABLE PO PRN ×2 (19:43→23:26)
--- NOTE | 2022-08-08 08:15 | P.DS ---
Providers Date of admission: 08/06/22 07:04 Expected date of discharge: 08/08/22 Attending physician: Carey Ayers Primary care physician: Stated None - Discharge Diagnosis(es) (1) SROM (spontaneous rupture of membranes) Current Visit: Yes Status: Acute (2) H/O section Current Visit: Yes Status: Acute (3) Term Current Visit: No Status: Acute (4) S/P section Current Visit: No Status: Acute Hospital Course: this is a 27-year-old G2 now P2 that presented to labor and delivery with complaints of spontaneous rupture of membranes at 38-4/7 weeks. Patient prior secondary to arrest of descent and dilation and requested repeat section. Patient had been receiving routine care which has been essentially uncomplicated with myself. Patient was taken back for a repeat section. For further details on the please see the operative report. Patient delivered a viable female infant at 829, weight of 7 lbs. 4 oz. Patient has done well postoperatively. On this postoperative day #2 she is ambulating and voiding without difficulty. She is tolerating a regular diet without nausea or vomiting. She states her pain is well-controlled. She would like discharge home today. Patient Condition at Discharge: Good Plan - Discharge Summary New Discharge Prescriptions: No Action Pnv 11/Iron Fum/Folic Acid/Om3 [Virt-Vincent Dha Softgel] 1 each PO DAILY Venlafaxine HCl [Effexor XR] 75 mg PO DAILY Aspirin [[place] Aspirin EC] 1 tab PO DAILY Discharge Medication List Aspirin [[place] Aspirin EC] 1 tab PO DAILY 07/27/21 [History] Pnv 11/Iron Fum/Folic Acid/Om3 [Virt-Vin[place] Dha Softgel] 1 each PO DAILY 08/14/21 [History] Venlafaxine HCl [Effexor XR] 75 mg PO DAILY 08/06/22 [History] Follow up Appointment(s)/Referral(s): Carey Ayers DO [Doctor of Osteopathic Medicine] - 2 Weeks Patient Instructions/Handouts: (DC), (GEN) Discharge Disposition: HOME SELF-CARE
[2022-08-08] MEDS: SIMETHICONE 80 MG CHEWABLE PO PRN (08:35)
[2022-08-08] MEDS: IBUPROFEN 600 MG TAB PO SCH ×3 (08:35→14:36)
[2022-08-08] MEDS: SENNOSIDES-DOCUSATE SODIUM 1 EACH TAB PO SCH (08:35)
[2022-08-08 10:18] VITALS: BP 133/86; PULSE 81; TEMP 98.9
[2022-08-08] MEDS: ACETAMINOPHEN TAB 500 MG TAB PO SCH ×2 (10:21→12:43)
[2022-08-08] MEDS: PRENATAL VIT-IRON-FOLIC ACID 1 EACH TABLET PO SCH (10:22)
== END 2022-08-08 15:00 | disposition home or self-care (01) | DRG 788 ==
LOC: FBPOP 06:30 → 4FBP 07:04
PROVIDERS: ADMIT Obstetrics & Gynecology Obstetrics; ATTEND Obstetrics & Gynecology Obstetrics
PROC: 10D00Z1 Extraction of Products of Conception, Low, Open Approach (ICD-10-PCS; principal; 2022-08-06 08:45)
DX: O34.211 Maternal care for low transverse scar from previous cesarean delivery (principal); O34.593 Maternal care for other abnormalities of gravid uterus, third trimester; O99.344 Other mental disorders complicating childbirth; F32.A Depression, unspecified; F41.9 Anxiety disorder, unspecified; Z79.82 Long term (current) use of aspirin; Z79.899 Other long term (current) drug therapy; Z82.49 Family history of ischemic heart disease and other diseases of the circulatory system; Z3A.38 38 weeks gestation of pregnancy; Z37.0 Single live birth
CPT/HCPCS: 59025; 84112; 85025; 86850; 86900; 86901; 99213

== ENCOUNTER → 2023-04-18 | Outpatient (CLI) | payer MEDICAID ==
[2023-04-19 02:16] LABS: HCT 40.8 % (37.2-46.3); HGB 13.2 g/dL (12.0-15.0); MCH 30.7 pg (27.0-32.0); MCHC 32.4 g/dL (32.0-37.0); MCV 94.9 fL (80.0-97.0); Mean Platelet Volume 11.8 fL (9.5-12.2); NRBC Per 100 WBC 0 /100 WBCS (0.0-0.0); Platelet Count 266 X 10*3/uL (140-440); RDW 13.4 % (11.5-14.5); WBC 8.57 X 10*3/uL (4.50-10.00)
[2023-04-19 02:35] LABS: T4, Free (Free Thyroxine) 1.21 ng/dL (0.800-1.800)
== END | disposition home or self-care (01) ==
LOC: LABWHC1 13:23
PROVIDERS: ATTEND Obstetrics & Gynecology Obstetrics
DX: R11.0 Nausea (principal); R53.83 Other fatigue
CPT/HCPCS: 36415; 82306; 83036; 84439; 84443; 85027

== ENCOUNTER → 2023-05-14 | Outpatient (CLI) | payer MEDICAID ==
[2023-05-14 17:51] LABS: ALT 20 U/L (4-34); AST 27 U/L (14-36); African American GFR (CKD) >90 (>60 ml/min/1.73 sqM); Albumin 4.2 g/dL (3.5-5.0); Albumin/Globulin Ratio 1.4; Alkaline Phosphatase 76 U/L (38-126); Anion Gap 12 mmol/L; Blood Urea Nitrogen 9 mg/dL (7-17); Calcium 8.9 mg/dL (8.4-10.2); Carbon Dioxide 23 mmol/L (22-30); Chloride 105 mmol/L (98-107); Glucose 53 mg/dL (74-99); Non-African American GFR(CKD) >90 (>60 ml/min/1.73 sqM); Sodium 140 mmol/L (137-145); Total Bilirubin 0.6 mg/dL (0.2-1.3); Total Protein 7.2 g/dL (6.3-8.2)
[2023-05-14 22:51] LABS: Chol/HDL Ratio 4.71 Ratio; LDL Cholesterol,Calculated 115.5 mg/dL (0.0-131.0)
[2023-05-14 23:47] LABS: Iron 98 UG/DL (50-170)
== END | disposition home or self-care (01) ==
LOC: LABWHC1 06:41
PROVIDERS: ATTEND Physician Assistant
DX: Z00.00 Encounter for general adult medical examination without abnormal findings (principal); Z13.220 Encounter for screening for lipoid disorders; E55.9 Vitamin D deficiency, unspecified; E78.5 Hyperlipidemia, unspecified; R53.83 Other fatigue
CPT/HCPCS: 36415; 80053; 80061; 82306; 83540

== ENCOUNTER → 2023-07-23 | Outpatient (CLI) | payer MEDICAID ==
[2023-07-24 04:17] LABS: B/A1 Ratio 0.75 Ratio (0.30 - 0.90)
== END | disposition home or self-care (01) ==
LOC: LABWHC1 11:49
PROVIDERS: ATTEND Internal Medicine Interventional Cardiology
DX: E78.2 Mixed hyperlipidemia (principal)
CPT/HCPCS: 36415; 82172; 83695

== ENCOUNTER → 2025-05-06 | Outpatient (CLI) | payer MEDICAID, OTHER ==
[2025-05-06 06:46] LABS: HCT 39.4 % (37.2-46.3); HGB 13.4 g/dL (12.0-15.0); MCH 31.2 pg (27.0-32.0); MCV 91.8 fL (80.0-97.0); Platelet Count 262 10*3/uL (140-440); RBC 4.29 10*6/uL (4.10-5.20); WBC 8.66 10*3/uL (4.50-10.00)
[2025-05-06 06:53] LABS: ALT 17 U/L (4-34); AST 19 U/L (14-36); African American GFR (CKD) >90 (>60 ml/min/1.73 sqM); Albumin 4.1 g/dL (3.5-5.0); Albumin/Globulin Ratio 1.5; Alkaline Phosphatase 57 U/L (38-126); Anion Gap 10 mmol/L; Blood Urea Nitrogen 9 mg/dL (7-17); Calcium 9.3 mg/dL (8.4-10.2); Carbon Dioxide 23 mmol/L (22-30); Chloride 108 mmol/L (98-107); Globulin 2.7 g/dL; Glucose 94 mg/dL (74-99); Non-African American GFR(CKD) >90 (>60 ml/min/1.73 sqM); Sodium 141 mmol/L (137-145); Total Bilirubin 0.4 mg/dL (0.2-1.3); Total Protein 6.8 g/dL (6.3-8.2)
[2025-05-06 08:44] LABS: T4, Free (Free Thyroxine) 1.08 ng/dL (0.78-2.19)
[2025-05-06 10:23] LABS: Chol/HDL Ratio 3.45 Ratio; LDL Cholesterol,Calculated 99.6 mg/dL (0.0-131.0); VLDL Calculation 16.92 mg/dL (5.00-40.00)
== END | disposition home or self-care (01) ==
LOC: RADXRMAIN 06:06
PROVIDERS: ATTEND Internal Medicine
DX: E78.2 Mixed hyperlipidemia (principal)
CPT/HCPCS: 80053; 80061; 84439; 84443; 85027